=== PATIENT | male | born 1945 | race Caucasian/White ===

== ENCOUNTER 2016-10-03 07:00 | Outpatient (CLI) | payer OTHER ==
[2016-10-03 07:38] LABS: eGFR (African) > 60; eGFR (Non-African) > 60
== END 2016-10-03 07:02 ==
LOC: LAB 07:00
PROVIDERS: ATTEND Family Medicine
DX: M10.9 Gout, unspecified (principal); I10 Essential (primary) hypertension
CPT/HCPCS: 36415; 80053; 80061; 84550

== ENCOUNTER 2017-02-22 13:49 | Emergency (ER) | payer OTHER ==
--- NOTE | 2017-02-22 13:52 | ED Physician Documentation ---
General Adult - HISTORIAN Historian: patient - HPI Stated Complaint: fever 103.3 Chief Complaint: Fever Onset: other (Since 10 am ) Timing: better Severity: mild Modifying Factors: none Context: none Quality: None Location: None Further Comments: yes (states he was in the chair at 10 am and he noted a cold chill took his temp and it was 103.3) Last known Well Date: 02/22/17 Last Known Well Time: 10:00 Last known Well Code/Unknown Code: Unknown - ROS CONST: fever, sweating, chills. denies: recent illness, weakness, weight loss EYES/ENT: none CVS/RESP: none GI/: none. denies: problems urinating, vomiting, nausea, diarrhea MS/SKIN/LYMPH: none. denies: rash NEURO/PSYCH: denies: headache, fainting, dizziness, difficulty with speech - PAST HX Past History: other (HTN ) Other History: none Surgeries/Procedures: other Immunizations: referred to PCP Allergies/Adverse Reactions: Allergies Allergy/AdvReac Type Severity Reaction Status Date / Time Penicillins AdvReac Unknown Hives Verified 02/22/17 14:29 - SOCIAL HX Smoking History: quit greater than 1 year Alcohol Use: none Drug Use: none - FAMILY HX Family History: No - REVIEWED ASSESSMENTS Nursing Assessment Reviewed: Yes Vitals Reviewed: Yes Progress - Progress Progress: 1544: Pt reports he is feeling "much better" ED Results Lab/Radiology - Radiology Radiology Impressions: Chest PA and lateral views Clinical history: Fever and cough Normal heart shadow and mediastinum. Clear lungs without acute infiltrate or pleural effusion. Osteoarthritis of both the acromioclavicular joints. Mild thoracic spondylosis. Impression: No active pulmonary pathology Electronically signed on Feb 22, 2017 2:42:41 PM CDT by: Devin Mendosa General Adult Physical Exam - PHYSICAL EXAM GENERAL APPEARANCE: no distress EENT: eye inspection normal NECK: normal inspection RESPIRATORY: no resp distress, chest non-tender, breath sounds normal CVS: reg rate & rhythm, heart sounds normal, equal pulses, no murmur ABDOMEN: soft, no organomegaly, normal bowel sounds BACK: normal inspection, no CVA tenderness SKIN: diaphoresis, other (improved ) EXTREMITIES: non-tender, normal range of motion NEURO: oriented X3, CN's nml as tested Discharge Clincal Impression: Urinary tract infection Qualifiers: Urinary tract infection type: site unspecified Hematuria presence: without hematuria Qualified Code(s): N39.0 - Urinary tract infection, site not specified Referrals: Devin Crowder MD [Primary Care Provider] - 2 Days Condition: Stable Disposition: 01 HOME, SELF-CARE Decision to Admit: NO Date of Decison to Admit: 02/22/17 Decision Time: 16:29
[2017-02-22] MEDS ORDERED: 0.9 % SODIUM CHLORIDE 1,000 ML IV ONE ×3 (14:00→15:18)
[2017-02-22 14:14] LABS: BASOPHILS % 0.3 (0.0-1.5); EOSINOPHILS % 1.8 % (0.0-6.8); MEAN CORPUSCULAR HEMOGLOBIN 29.2 pg (28.0-34.0); MONOCYTES % 5.3 % (0.0-11.0); NEUTROPHILS # 8.5 # k/uL (1.4-7.7)
[2017-02-22 14:42] LABS: eGFR (African) > 60; eGFR (Non-African) > 60
[2017-02-22] MEDS ORDERED: LEVOFLOXACIN 500MG/D5W 100ML 500 MG in PREMIX BAG 1 BAG IV ONE (15:17)
[2017-02-22] MEDS ORDERED: LEVOFLOXACIN 500MG/D5W 100ML 100 ML IV ONE (15:19)
--- NOTE | 2017-02-22 15:44 | Diagnostic Imaging Report ---
[facility] [address] [address] Report Submission Date: Feb 22, 2017 2:42:41 PM CDT Patient Study Name: ANDREEA NEGRETE Date: Feb 22, 2017 2:29:08 PM CDT Modality Type: CR Gender: M Description: CHEST : 49 Institution: [facility] Physician: BEN BOLAÑOS - VINCE Chest PA and lateral views Clinical history: Fever and cough Normal heart shadow and mediastinum. Clear lungs without acute infiltrate or pleural effusion. Osteoarthritis of both the acromioclavicular joints. Mild thoracic spondylosis. Impression: No active pulmonary pathology Electronically signed on Feb 22, 2017 2:42:41 PM CDT by: Devin ROSEN
[2017-02-22 16:51] VITALS: BP 141/61
[2017-02-23 06:38] LABS: APPEARANCE,URINE CLOUDY (CLEAR); COLOR,URINE AMBER (YELLOW); OCCULT BLOOD,URINE 1+ (NEGATIVE)
== END 2017-02-22 16:49 | disposition home or self-care (01) ==
LOC: ED 13:49
DX: N39.0 Urinary tract infection, site not specified (principal)
CPT/HCPCS: 71020; 80053; 81002; 84484; 85025; 87086; 87186; 87400; 93005; J1956; J7030; 96361; 96374; 99283; S1016

== ENCOUNTER 2017-12-16 11:51 | Outpatient (CLI) | payer OTHER ==
--- NOTE | 2017-12-16 13:38 | Diagnostic Imaging Report ---
ANETTE MONTOYA [facility] [address] [facility] [address] Report Submission Date: Dec 16, 2017 12:24:35 PM CDT Patient Study Name: ANDREEA NEGRETE Date: Dec 16, 2017 11:53:03 AM CDT Modality Type: DX Gender: M Description: LOWER EXTREMITY : 49 Institution: [facility] Physician: ANETTE MONTOYA Examination: Plain film right foot History: RT 4TH TOE EXOSTOSIS (Hx) Comparison exam: None provided. Findings: 3 views of the right foot demonstrates an exostosis projecting of the distal margin of the 4th and 5th metatarsals. Articular degenerative changes. No fracture or dislocation. Calcaneal spurs. No soft tissue swelling. No joint effusion. Impression: 4th and 5th metatarsal exostoses. Articular degenerative changes. No acute cortical abnormality. Electronically signed on Dec 16, 2017 12:24:35 PM CDT by: Fab ROSEN
== END 2017-12-16 13:52 ==
LOC: RAD 11:51
DX: M89.8X7 Other specified disorders of bone, ankle and foot (principal)
CPT/HCPCS: 73630

== ENCOUNTER 2018-03-28 09:15 | Emergency (ER) | payer OTHER ==
[2018-03-28] MEDS ORDERED: 0.9 % SODIUM CHLORIDE 1,000 ML IV SCH (10:00)
--- NOTE | 2018-03-28 10:01 | ED Physician Documentation ---
General Adult - HISTORIAN Historian: patient - HPI Stated Complaint: burning with urination Chief Complaint: Male Genitourinary Problems Additional Information: intro self as HVAC DESIGNER. pt presents to the ED c/o burning and frequency with urination and suprapubic pain that is intermittent 10/12. pt denies pain or other symptoms at this time. pt reports he has had a UTI 2 months ago. pt denies current chest pain, dyspnea, syncope/near syncope, headache, dizziness, visual disturbances, n/v/d, fever/chills, rash, sick contacts, , trauma. melena or hematochezia, bleeding or easy bruising, change in bowel function. anxiety or depression. ROS Negative unless otherwise specified. - ROS CONST: no problems - PAST HX Past History: COPD, other (GERD hyperlipidema) Allergies/Adverse Reactions: Allergies Allergy/AdvReac Type Severity Reaction Status Date / Time Penicillins AdvReac Unknown Hives Verified 02/22/17 14:29 - SOCIAL HX Smoking History: quit greater than 1 year (quit 30 years ago) Alcohol Use: none Drug Use: none - FAMILY HX Family History: No - VITAL SIGNS Vital Signs: Vital Signs Temp Pulse Resp BP Pulse Ox 141/61 02/22/17 16:49 - REVIEWED ASSESSMENTS Nursing Assessment Reviewed: Yes Vitals Reviewed: Yes Progress - Progress Progress: Pt refused labs. advised pt to return if worse and seek medical care, understanding verbalized. ED Results Lab/Radiology - Orders Orders: ED Orders Category Date Time Status CBC/PLATELET/DIFF Routine Lab 03/28/18 Ordered CMP Routine Lab 03/28/18 Ordered URINALYSIS Routine Lab 03/28/18 Ordered 0.9 % Sodium Chloride [Normal Saline] 1,000 ml Med 03/28/18 10:00 Ordered IV Q10H General Adult Physical Exam - PHYSICAL EXAM GENERAL APPEARANCE: no distress EENT: eye inspection normal, ENT inspection normal, pharynx normal, no signs of dehydration, SAMANTHA, no nystagmus, TM's nml NECK: normal inspection, thyroid normal RESPIRATORY: no resp distress, chest non-tender, breath sounds normal CVS: reg rate & rhythm, heart sounds normal, equal pulses, no murmur, no gallop, PMI nml, no JVD, no friction rub, 24 ABDOMEN: soft, no organomegaly, normal bowel sounds, no abdominal bruit, no distension, tenderness (mild suprapubic) BACK: normal inspection, no CVA tenderness SKIN: normal color, warm/dry, NR, INT, PAL, DR EXTREMITIES: non-tender, normal range of motion, no evidence of injury, no edema, J, HVAC DESIGNER NEURO: oriented X3, motor nml, sensation nml, mood/affect nml Discharge Clincal Impression: Urinary tract infection Qualifiers: Urinary tract infection type: site unspecified Hematuria presence: with hematuria Qualified Code(s): N39.0 - Urinary tract infection, site not specified; R31.9 - Hematuria, unspecified Referrals: Devin Crowder MD [Primary Care Provider] - 2 Days Additional Instructions: Follow up with primary care in 1 week for urine recheck. It is important to make sure the blood in your urine resolves. if it does not you may need referral to a urologist. A urine culture was sent off an we should have results in 4 days. If you do not hear anything the result is likely negative. please call if you have not heard anything [phone] cephalexin 500 mg twice a day for 7 days. Return if your symptoms worsen. seek medical care immediately if difficult to wake, chest pain, shortness of breath, dizziness, difficulty breathing, feeling faint or fainting, increased rash, or fever not controlled by tylenol/motrin. PLEASE UNDERSTAND THAT THIS IS AN EMERGENCY EVALUATION FOR YOUR COMPLAINT AND BY NATURE IS LIMITED AND NOT A SUBSTITUTE FOR ONGOING MEDICAL CARE. EVEN THOUGH TEST RESULTS AND TREATMENT PLAN WERE EXPLAINED THERE MAY BE A NEED FOR ADDITIONAL TESTING TO FULLY DETERMINE THE EXTENT OF YOUR ILLNESS/INJURY/OR CONCERN SO YOU SHOULD CONTACT AND OR ESTABLISH WITH A PRIMARY CARE PROVIDER (OR REFERRAL DOCTOR IF APPLICABLE) FOR AN APPOINTMENT SOON POSSIBLE Condition: Good Disposition: 01 HOME, SELF-CARE Decision to Admit: NO Date of Decison to Admit: 03/28/18 Decision Time: 10:01
[2018-03-28 10:43] VITALS: BP 156/86
[2018-03-29 07:57] LABS: OCCULT BLOOD,URINE 1+ (NEGATIVE); PH URINE 5.5 (5.0 - 8.0); UROBILINOGEN URINE 0.2 Eu (0.2-1.0)
== END 2018-03-28 10:15 | disposition home or self-care (01) ==
LOC: ED 09:15
DX: N39.0 Urinary tract infection, site not specified (principal); R31.9 Hematuria, unspecified
CPT/HCPCS: 80053; 81002; 99282; 99283